=== PATIENT | female | born 1970 | race Caucasian/White ===

== ENCOUNTER → 2024-08-13 | Outpatient (CLI) | payer BC ==
[~2024-08-13] VITALS: Ht 30.5 cm; Wt 0.5 kg
[~2024-08-13] MED LIST: ACET-1881 PO; BACDST PO; HYDR-4798 PO; IBUP-1453 PO; IODIXANOL 320MG/ML 100ML BTL IV ONE; LIDOCAINE 2%HCL (LOCAL ANESTH.) INJ 20ML MDV ONE; MIDAZOLAM HCL 2MG/2ML 2ml VIAL (1mg/ml) ONE; PROP1TAB51 PO; fentaNYL CITRATE 100 MCG/2 ML VL ONE; levoFLOXacin 500MG 100 ML IV STA
[2024-08-13 11:15] VITALS: BP 119/81; PULSE 62; RESP 12; TEMP 97; O2SAT 96
[2024-08-13 11:30] VITALS: BP 113/73; PULSE 60; RESP 14; O2SAT 96
[2024-08-13 11:45] VITALS: BP 118/69; PULSE 53; RESP 16; O2SAT 93
[2024-08-13 12:00] VITALS: BP 118/69; PULSE 55; RESP 18; O2SAT 94
[2024-08-13 12:14] VITALS: BP 133/80; PULSE 53; RESP 13; O2SAT 97
== END | disposition home or self-care (01) ==
LOC: EDSEX → CATH 07:30 → EDUNIT# 08-16 07:00 → EDSTATUS 08-16 07:00
PROVIDERS: ATTEND Radiology Diagnostic Radiology
DX: Z43.6 Encounter for attention to other artificial openings of urinary tract (principal); N20.0 Calculus of kidney; Z88.0 Allergy status to penicillin; Z91.048 Other nonmedicinal substance allergy status; Z87.891 Personal history of nicotine dependence
CPT/HCPCS: 50432; C1729; C1769; C1894; J1644; J1956; J2250; J3010; J7040; Q9967; 74425; 76942; 99152; 99153

== ENCOUNTER 2024-08-16 06:07 | Inpatient (IN) | payer BC ==
[2024-08-10 14:28] LABS: Basophils # (auto) 0.1 10 ^3/uL (0-0.2); Basophils % (auto) 0.8 % (0.0-2.0); Eosinophils # (auto) 0.8 10 ^3/uL (0-0.8); Eosinophils % (auto) 7.1 % (0.0-7.0); Hematocrit 42.2 % (36.0-46.0); Hemoglobin 14.4 g/dL (12.2-16.2); Lymphocytes # (auto) 2.5 10 ^3/uL (0.4-5.4); Mean Corpuscular Hemoglobin 29.9 pg (28.0-32.0); Mean Corpuscular Hgb Conc. 34.2 g/dL (32.0-36.0); Mean Corpuscular Volume 87.5 fL (80.0-100.0); Monocytes # (auto) 0.7 10 ^3/uL (0-1.3); Monocytes % (auto) 6.3 % (0.0-12.0); Neutrophils # (auto) 6.9 10 ^3/uL (1.6-8.6); Neutrophils % (auto) 62.8 % (37.0-80.0); Platelet Count (auto) 366 10^3/uL (140-450); Red Blood Cells 4.82 10^6/uL (4.0-5.20); Red Cell Distribution Width 14.1 % (11.8-14.3)
[2024-08-10 14:34] LABS: Urine Bacteria MOD /hpf (None Seen); Urine Blood 1+ /uL (Negative); Urine Protein, UAD TRACE (Negative); Urine Specific Gravity 1.016 (1.001-1.035); Urine Urobilinogen Normal (Negative); Urine WBC 424 /hpf (0 - 5); Urine WBC Clumps PRESENT /hpf (None Seen)
[2024-08-10 14:45] LABS: Urine Clarity Cloudy (Clear); Urine Color Yellow (Yellow)
[2024-08-10 14:49] LABS: INR 1.01 (0.9-1.15); Partial Thromboplastin Time 26.3 SEC (24.5-34.5); Prothrombin Time 10.7 sec (9.3-11.8)
[2024-08-10 14:50] LABS: Alanine Aminotransferase 42 U/L (7-40); Alkaline Phosphatase 143 U/L (46-116); Anion Gap 8 (5-15); BUN/Creatinine Ratio 10.9 (10.0-20.0); Blood Urea Nitrogen 12 mg/dL (9-23); Carbon Dioxide 29 mmol/L (20-31); Chloride 105 mmol/L (98-107); Glucose 89 mg/dL (74-106); Potassium 3.9 mmol/L (3.5-5.1); Sodium 142 mmol/L (136-145)
[2024-08-10 14:51] LABS: Albumin 5.1 g/dL (3.2-4.8); Aspartate Aminotransferase 44 U/L (13-40); Bilirubin, Total 0.3 mg/dL (0.2-1.0); Total Protein 8.5 g/dL (5.7-8.2)
[~2024-08-16] VITALS: Ht 185.4 cm; Wt 134.5 kg
[~2024-08-16 06:07] MED LIST changes: -ACET-1881 PO; -BACDST PO; -IBUP-1453 PO; -IODIXANOL 320MG/ML 100ML BTL IV ONE; -LIDOCAINE 2%HCL (LOCAL ANESTH.) INJ 20ML MDV ONE; -MIDAZOLAM HCL 2MG/2ML 2ml VIAL (1mg/ml) ONE; -fentaNYL CITRATE 100 MCG/2 ML VL ONE; -levoFLOXacin 500MG 100 ML IV STA
[2024-08-16] MEDS: IOHEXOL 180 MG/ML 20ML VIAL IJ ONE (06:52)
[2024-08-16] MEDS: SUCCINYLCHOLINE CHLORIDE 20 MG/ML 10ML VIAL IV ONE (07:04)
[2024-08-16] MEDS ORDERED: PROPOFOL 10 MG/ML 20 ML IV ONE (07:09)
[2024-08-16] MEDS ORDERED: fentaNYL CITRATE 5 ML ONE (07:09)
[2024-08-16] MEDS: levoFLOXacin 500MG 100 ML IV ONE (07:32)
[2024-08-16] MEDS ORDERED: ePHEDrine SULFATE 50 MG/ML AMP ONE (08:14)
[2024-08-16] MEDS ORDERED: DexAMETHasone SOD PHOS 10MG/1ML VIAL INJ ONE (08:19)
[2024-08-16] MEDS ORDERED: ONDANSETRON HCL 4 MG/2 ML VIAL ONE (08:19)
[2024-08-16] MEDS ORDERED: MEPERIDINE HCL (50 MG/ML) 1 ML VIAL ONE (09:10)
[2024-08-16] MEDS: IOHEXOL 350 MG/ML 100ML IJ ONE (09:30)
[2024-08-16 10:18] VITALS: O2SAT 97
[2024-08-16] MEDS ORDERED: MEPERIDINE HCL (25 MG/ML) 1ML VIAL IV PRN (10:30)
[2024-08-16] MEDS: ONDANSETRON HCL 4 MG/2 ML VIAL IV ONE (10:56)
[2024-08-16] MEDS: ONDANSETRON HCL 4 MG/2 ML VIAL ONE (10:58)
[2024-08-16] MEDS: HYDROmorphone HCL 2 MG/ML VL/or syr IV PRN (11:14)
[2024-08-16] MEDS ORDERED: MORPHINE SULFATE INJ 2 MG/ml SYRG IV PRN (12:00)
[2024-08-16] MEDS ORDERED: NITROGLYCERIN 0.4 MG SL TAB SL PRN (12:00)
[2024-08-16] MEDS ORDERED: ONDANSETRON HCL 4 MG/2 ML VIAL IM PRN (12:15)
[2024-08-16] MEDS: METOCLOPRAMIDE HCL 5MG/ml INJ 2ml VIAL ONE (12:17)
[2024-08-16] MEDS: FAMOTIDINE (10MG/ML) 2ML VL IV ONE (12:18)
[2024-08-16] MEDS: FAMOTIDINE (10MG/ML) 2ML VL IV PRN (12:18)
[2024-08-16] MEDS: METOCLOPRAMIDE HCL 5MG/ml INJ 2ml VIAL IV PRN (12:18)
[2024-08-16] MEDS: SODIUM CHLORIDE 0.9% 1,000 ML IV SCH (13:30)
[2024-08-16] MEDS ORDERED: ONDANSETRON HCL 4 MG/2 ML VIAL IV PRN (13:30)
[2024-08-16] MEDS: cefTRIAXone 1GM/50ML D5W 50 ML IV ONE (15:09)
[2024-08-16 15:34] VITALS: PULSE 62; RESP 16; O2SAT 96
[2024-08-16 16:31] VITALS: BP 129/61; PULSE 62; RESP 18; TEMP 98.6; O2SAT 98
[2024-08-16 16:44] LABS: Basophils # (auto) 0 10 ^3/uL (0-0.2); Basophils % (auto) 0.1 % (0.0-2.0); Eosinophils # (auto) 0 10 ^3/uL (0-0.8); Hematocrit 42.4 % (36.0-46.0); Hemoglobin 14.3 g/dL (12.2-16.2); Lymphocytes # (auto) 0.6 10 ^3/uL (0.4-5.4); Lymphocytes % (auto) 6.4 % (10.0-50.0); Mean Corpuscular Hemoglobin 29.7 pg (28.0-32.0); Mean Corpuscular Hgb Conc. 33.6 g/dL (32.0-36.0); Mean Corpuscular Volume 88.4 fL (80.0-100.0); Monocytes # (auto) 0.1 10 ^3/uL (0-1.3); Monocytes % (auto) 0.7 % (0.0-12.0); Neutrophils # (auto) 9.3 10 ^3/uL (1.6-8.6); Neutrophils % (auto) 92.8 % (37.0-80.0); Platelet Count (auto) 305 10^3/uL (140-450); Red Cell Distribution Width 14.7 % (11.8-14.3)
[2024-08-16 17:03] LABS: Alanine Aminotransferase 53 U/L (7-40); Albumin 4.6 g/dL (3.2-4.8); Alkaline Phosphatase 146 U/L (46-116); Anion Gap 8 (5-15); Aspartate Aminotransferase 49 U/L (13-40); BUN/Creatinine Ratio 10.2 (10.0-20.0); Bilirubin, Total 0.4 mg/dL (0.2-1.0); Blood Urea Nitrogen 10 mg/dL (9-23); Calcium 9.9 mg/dL (8.7-10.4); Carbon Dioxide 24 mmol/L (20-31); Chloride 104 mmol/L (98-107); Glucose 206 mg/dL (74-106); Potassium 3.9 mmol/L (3.5-5.1); Sodium 136 mmol/L (136-145); Total Protein 8.1 g/dL (5.7-8.2)
[2024-08-16 18:00] VITALS: BP 99/48; PULSE 80; RESP 18; TEMP 98.1; O2SAT 94
[2024-08-16] MEDS: HYDROcodone-ACET 5/325MG TAB PO PRN (18:50)
[2024-08-16 19:24] LABS: Urine Bacteria FEW /hpf (None Seen); Urine Blood 3+ /uL (Negative); Urine Clarity Clear (Clear); Urine Color Colorless (Yellow); Urine Protein, UAD 1+ (Negative); Urine Specific Gravity 1.007 (1.001-1.035); Urine Urobilinogen Normal (Negative); Urine WBC 70 /hpf (0 - 5); Urine pH 6.5 (5.0-9.0)
[2024-08-16 20:10] VITALS: PULSE 80; RESP 18; O2SAT 94
[2024-08-16 22:00] VITALS: BP 99/48; PULSE 80; RESP 18; TEMP 98.1; O2SAT 94
[2024-08-17 01:00] VITALS: BP 107/47; PULSE 62; RESP 20; TEMP 97.7; O2SAT 96
[2024-08-17 05:00] VITALS: BP 110/59; PULSE 58; RESP 20; TEMP 97.7; O2SAT 98
[2024-08-17 08:52] VITALS: BP 112/62; PULSE 63; RESP 17; TEMP 97.4; O2SAT 97
[2024-08-17 10:00] LABS: Basophils # (auto) 0.1 10 ^3/uL (0-0.2); Basophils % (auto) 0.4 % (0.0-2.0); Eosinophils # (auto) 0 10 ^3/uL (0-0.8); Eosinophils % (auto) 0.3 % (0.0-7.0); Hematocrit 39.5 % (36.0-46.0); Hemoglobin 12.9 g/dL (12.2-16.2); Lymphocytes # (auto) 1.8 10 ^3/uL (0.4-5.4); Lymphocytes % (auto) 14.6 % (10.0-50.0); Mean Corpuscular Hemoglobin 29.2 pg (28.0-32.0); Mean Corpuscular Hgb Conc. 32.7 g/dL (32.0-36.0); Mean Corpuscular Volume 89.3 fL (80.0-100.0); Monocytes # (auto) 0.7 10 ^3/uL (0-1.3); Monocytes % (auto) 5.7 % (0.0-12.0); Nucleated Red Blood Cells % 0.1 %; Platelet Count (auto) 303 10^3/uL (140-450); Red Blood Cells 4.42 10^6/uL (4.0-5.20); Red Cell Distribution Width 14.3 % (11.8-14.3); White Blood Cell 12.6 10^3/uL (4.4-10.8)
[2024-08-17] MEDS: cefTRIAXone 1GM/50ML D5W 50 ML IV SCH (10:06)
[2024-08-17 10:34] LABS: Anion Gap 7 (5-15); Carbon Dioxide 26 mmol/L (20-31); Chloride 107 mmol/L (98-107); Potassium 3.5 mmol/L (3.5-5.1); Sodium 140 mmol/L (136-145)
[2024-08-17 10:35] LABS: Calcium 9.5 mg/dL (8.7-10.4)
[2024-08-17 10:40] LABS: BUN/Creatinine Ratio 12.2 (10.0-20.0); Blood Urea Nitrogen 10 mg/dL (9-23); Glucose 111 mg/dL (74-106)
[2024-08-17 12:45] VITALS: BP 115/61; PULSE 65; RESP 17; TEMP 98.3; O2SAT 98
[2024-08-17] MEDS ORDERED: BACDST PO (12:45)
[2024-08-17] MEDS ORDERED: IBUP-1453 PO (12:45)
[2024-08-17] MEDS ORDERED: ACET-1881 PO (12:45)
[2024-08-17 13:48] VITALS: TEMP 36.8
[2024-08-17 16:28] VITALS: BP 120/77; PULSE 70; RESP 18; TEMP 97.9; O2SAT 97
== END 2024-08-17 15:50 | disposition home or self-care (01) | DRG 660 ==
LOC: EDSEX → SUR 06:07 → OVERFLOW 11:50 → WEST WING 14:02
PROVIDERS: ADMIT Internal Medicine; ATTEND Student in an Organized Health Care Education/Training Program
PROC: 0T778DZ Dilation of Left Ureter with Intraluminal Device, Via Natural or Artificial Opening Endoscopic (ICD-10-PCS; 2024-08-16)
PROC: 0TC18ZZ Extirpation of Matter from Left Kidney, Via Natural or Artificial Opening Endoscopic (ICD-10-PCS; 2024-08-16)
PROC: 0TC78ZZ Extirpation of Matter from Left Ureter, Via Natural or Artificial Opening Endoscopic (ICD-10-PCS; 2024-08-16)
PROC: 0TP98DZ Removal of Intraluminal Device from Ureter, Via Natural or Artificial Opening Endoscopic (ICD-10-PCS; principal; 2024-08-16 07:32)
DX: N20.0 Calculus of kidney (principal); N39.0 Urinary tract infection, site not specified; E66.9 Obesity, unspecified; R74.01 Elevation of levels of liver transaminase levels; Z88.0 Allergy status to penicillin; Z68.39 Body mass index [BMI] 39.0-39.9, adult; Z79.899 Other long term (current) drug therapy
CPT/HCPCS: 36415; 74018; 74176; 76000; 80048; 80053; 81001; 82360; 85025; 85610; 85730; 87086; 87088; 87186; G0378; J0330; J1100; J1956; J2405; J2704; J3490; Q9965

== ENCOUNTER 2024-10-23 10:53 | Day surgery (SDC) | payer BC ==
[~2024-10-23] VITALS: Ht 185.4 cm; Wt 129.3 kg
[~2024-10-23 10:53] MED LIST changes: +ACET-1881 PO; +IBUP-1453 PO
[2024-10-23] MEDS ORDERED: KETAMINE 50mg/ML 1ml syringe IV ONE (10:54)
[2024-10-23 12:14] VITALS: TEMP 98.1
[2024-10-23] MEDS ORDERED: CIPROFLOXACIN 400MG/200ML 200 ML IV ONE (13:12)
[2024-10-23] MEDS ORDERED: fentaNYL CITRATE 100 MCG/2 ML VL ONE (13:21)
[2024-10-23] MEDS ORDERED: PROPOFOL 10 MG/ML 20 ML IV ONE (13:21)
[2024-10-23] MEDS ORDERED: ONDANSETRON HCL 4 MG/2 ML VIAL ONE (13:21)
[2024-10-23] MEDS ORDERED: DexAMETHasone SOD PHOS 10MG/1ML VIAL INJ ONE (13:21)
[2024-10-23] MEDS ORDERED: KETOROLAC TROMETH 30 MG/ML 1ML VIAL ONE (13:21)
[2024-10-23] MEDS ORDERED: GLYCOPYRROLATE 0.2 MG/ML 1ML VIAL ONE (13:21)
[2024-10-23] MEDS ORDERED: SUGAMMADEX 200mg/2ml Vial (100MG/ML) IV ONE (13:21)
[2024-10-23] MEDS ORDERED: ROCURONIUM 10MG/ML 10ML VIAL IV ONE (13:21)
[2024-10-23] MEDS ORDERED: LIDOCAINE 2% (LOCAL ANESTH.) PF 5ml SDV ONE (13:21)
[2024-10-23] MEDS ORDERED: SODIUM CHLORIDE LOCK 10 ML ONE (13:50)
[2024-10-23] MEDS ORDERED: PHENYLEPHRINE HCL 10 MG/ML VL ONE (13:50)
--- NOTE | 2024-10-23 14:26 | DVHDS2 ---
New Physician D'charge PN Admitting Diagnosis Admitting Diagnosis Left nephrolithiasis and left ureteral stent Discharge Diagnosis Same Operations or Procedures Left ureteroscopic CVAC laser lithotripsy Left ureteral stent removal Reason(s) For Hospitalization Surgery Treatment Plan Discharge Condition of Discharge Good Disposition Home Discharge Instructions Diet: Regular Activity: No Restrictions, As Tolerated Activity comment: As tolerated Medications: Given Follow Up Care Follow Up/Referral: Two weeks with [facility] Discharge Statement: "Patient was advised to return to the ER or call 911 if any headaches, dizziness, shortness of breath, chest pain, abdominal pain, bleeding, fevers, or worsening of medical condition. Patient was counseled about treatment plan, medications, possible side effects, patientverbalized understanding. All questions were answered to the best of my ability. This discharge took greater then 30 minutes in planning, reviewing documentation, counseling the patient, and discussing with other team members." ABRAM WALKER MD Oct 23, 2024 14:26
[2024-10-23 14:33] VITALS: PULSE 88; RESP 15; O2SAT 98
[2024-10-23 15:27] VITALS: BP 149/85; PULSE 67; RESP 15; O2SAT 95
--- NOTE | 2024-10-23 16:42 | DVH ---
C-ARM FLUOROSCOPY: PROCEDURE: Left lithotripsy FLUOROSCOPY TIME: 84.2 seconds DAP: 35 mgy FINDINGS: Spot intraoperative C arm radiographs demonstrating left lithotripsy. IMPRESSION: Please refer to surgical report for detailed findings.
== END 2024-10-23 15:40 | disposition home or self-care (01) ==
LOC: SUR 10:53
PROVIDERS: ATTEND Urology
DX: N20.2 Calculus of kidney with calculus of ureter (principal); E66.01 Morbid (severe) obesity due to excess calories; Z68.37 Body mass index [BMI] 37.0-37.9, adult; Z79.899 Other long term (current) drug therapy; Z90.710 Acquired absence of both cervix and uterus; Z90.49 Acquired absence of other specified parts of digestive tract; Z87.440 Personal history of urinary (tract) infections; Z87.891 Personal history of nicotine dependence; Z88.8 Allergy status to other drugs, medicaments and biological substances
CPT/HCPCS: 52353; 74018; 82360; 88300; J0744; J1100; J1885; J2003; J2371; J2405; J2704; 76000